=== PATIENT | female | born 1960 | race Caucasian/White ===

== ENCOUNTER → 2016-11-13 | Outpatient (CLI) | payer OTHER ==
--- NOTE | 2016-11-13 20:25 | MA ---
Screening Digital Mammogram, With Tomosynthesis and iCAD November 13, 2016 Indication: Routine screening. Sister diagnosed with breast cancer in her late 40s. Technique: Standard digital CC projections were obtained. Digital breast tomosynthesis was performe d in the MLO projection with reconstruction at 1.0-mm slice thickness. Composite MLO views were clare nstructed. This examination was processed by the iCAD computer-aided detection system. Comparison: October 2015, October 2014, October 2013, and September 2011. Breast density: Type B. Findings: CAD was reviewed. No suspicious microcalcifications, mass, or architectural distortion. The biopsied nodule and scattered microcalcifications throughout the right and left breasts are uncha nged. Impression: 1. Benign unchanged mammograms. 2. BI-RADS 2: Benign Finding. Recommendation: Routine screening is recommended in one year. [facility] will send a result letter to the patient. Negative mammography should not preclude additional workup of a clinically suspicious finding. The patient's information is entered into a reminder system with a target due date for her next mammo gram.
== END ==
LOC: FIMAGING 15:51
DX: Z12.31 Encounter for screening mammogram for malignant neoplasm of breast (principal); Z80.3 Family history of malignant neoplasm of breast
CPT/HCPCS: G0202

== ENCOUNTER 2016-11-29 11:47 | Emergency (ER) | payer OTHER ==
--- NOTE | 2016-11-29 13:04 | DX ---
Right Ankle - Three Views Indication: Fell down stairs. Pain. Technique: AP, mortise, and lateral views. Comparison: None. Findings: An acute transverse fracture courses through the distal fibula just inferior to the level o f the plafond. The distal fracture fragment is anatomically aligned. No derangement of the ankle mort ise. Moderate lateral soft tissue swelling. Impression: Acute nondisplaced distal fibular fracture. Intact ankle mortise.
[2016-11-29 13:21] VITALS: BP 174/111; PULSE 68; RESP 16; TEMP 97.5; O2SAT 96
--- NOTE | 2016-11-29 13:50 | UCPHY ---
H & P Time Seen by Provider: 11/29/16 13:30 Patient Type: Established HPI/ROS: 56-year-old female presents complaining of right ankle pain after falling off some steps. No numbness or tingling. Painful with weight-bearing to right ankle right lower leg Review of systems General no fever no chills no weakness HEENT no eye pain no eye discharge. No eye redness, no sore throat Respiratory no cough, no shortness of breath Cardiac no chest pain, no peripheral edema GI no abdominal pain, no diarrhea, no constipation, no nausea, no vomiting no flank pain, no hematuria, no dysuria Musculoskeletal no myalgias, positive joint pain Heme no easy bruising, no easy bleeding Endo no polyuria, no polydipsia Skin no rashes, no pruritus Neuro no syncope, no dizziness, no headaches Psych is no suicidal ideation, no homicidal ideation Past Medical/Surgical History: Hypertension Prior history of ankle fracture on the left Social History: Denies alcohol or drug use Smoking Status: Never smoked Physical Exam: Alert and oriented in no acute distress nontoxic appearance, afebrile Atraumatic normocephalic Neck no JVD Lungs clear to auscultation, no respiratory distress Heart regular rate and rhythm Extremities no cyanosis or clubbing Right ankle positive edema positive tenderness to palpation over right lateral malleolus Distal pulses intact good capillary refill, sensation intact, no evidence of gross instability Constitutional: Initial Vital Signs Temperature (C) 36.4 C 11/29/16 12:08 Heart Rate 68 11/29/16 12:08 Respiratory Rate 16 11/29/16 12:08 Blood Pressure 174/111 H 11/29/16 12:08 O2 Sat (%) 96 11/29/16 12:08 O2 Delivery Mode Room Air Allergies/Adverse Reactions: epinephrine Allergy (Intermediate, Verified 11/29/16 12:06) RAPID HR, ANXIETY Home Medications: Medication Instructions Recorded Aspirin [Aspirin 81mg (OTC)] 81 mg PO HS 07/18/13 Melatonin [Melatonin 3 MG (OTC)] 3 mg PO HS 07/18/13 Zaleplon [Sonata] 10 mg PO HS 07/18/13 Atenolol 100 mg PO 04/04/14 traZODONE 04/04/14 Ativan 11/29/16 Atorvastatin Calcium 11/29/16 Norvasc 11/29/16 Medical Decision Making - Diagnostics Imaging: Right ankle distal fibular fracture nondisplaced ED Course/Re-evaluation: Patient seen and evaluated for ankle injury X-ray positive for ankle fracture distal fibula nondisplaced Impression Right distal fibular fracture nondisplaced Plan Boot Crutches Follow up with Ortho Departure - Departure Disposition: Home, Routine, Self-Care Clinical Impression: Closed fracture of right distal fibula Condition: Good Instructions: Ankle Fracture (ED) Referrals: Gordy Montemayor MD [Primary Care Provider] - As per Instructions Pranav Lynn MD [Medical Doctor] - As per Instructions - PQRS PQRS Measurement: na
== END 2016-11-29 13:56 | disposition home or self-care (01) ==
LOC: CED 11:47
DX: S82.424A Nondisplaced transverse fracture of shaft of right fibula, initial encounter for closed fracture (principal); W10.9XXA Fall (on) (from) unspecified stairs and steps, initial encounter
CPT/HCPCS: 73610-PO; 99214-PO; G0463-PO; L4386

== ENCOUNTER → 2017-03-24 | Outpatient (CLI) | payer OTHER | LOC: FIMAGING 14:16 | PROVIDERS: ATTEND Obstetrics & Gynecology | DX: R32 Unspecified urinary incontinence (principal) ==

== ENCOUNTER → 2017-03-25 | Outpatient (CLI) | payer OTHER | LOC: FIMAGING 08:02 | PROVIDERS: ATTEND Internal Medicine Gastroenterology | DX: K21.9 Gastro-esophageal reflux disease without esophagitis (principal); K44.9 Diaphragmatic hernia without obstruction or gangrene ==

== ENCOUNTER → 2017-08-04 | Outpatient (CLI) | payer OTHER ==
[~2017-08-04] MED LIST: IOPAMIDOL (ISOVUE-300) 100 ML BTL ONE
== END ==
LOC: FIMAGING 09:36
PROVIDERS: ATTEND Internal Medicine
DX: D25.1 Intramural leiomyoma of uterus (principal); D25.0 Submucous leiomyoma of uterus
CPT/HCPCS: Q9967

== ENCOUNTER → 2018-02-16 | Outpatient (CLI) | payer OTHER | LOC: FIMAGING 13:38 | PROVIDERS: ATTEND Internal Medicine | DX: Z12.31 Encounter for screening mammogram for malignant neoplasm of breast (principal); Z80.3 Family history of malignant neoplasm of breast ==

== ENCOUNTER → 2018-02-22 | Outpatient (CLI) | payer OTHER | LOC: FIMAGING 14:09 | PROVIDERS: ATTEND Internal Medicine | DX: R92.1 Mammographic calcification found on diagnostic imaging of breast (principal) ==

== ENCOUNTER → 2018-09-14 | Outpatient (CLI) | payer OTHER | LOC: FIMAGING 14:48 | PROVIDERS: ATTEND Internal Medicine | DX: R92.1 Mammographic calcification found on diagnostic imaging of breast (principal) ==